=== PATIENT | female | born 2005 | race Hispanic/Latino ===

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

== ENCOUNTER 2023-05-26 01:25 | Emergency (ER) | payer MEDICAID ==
[~2023-05-26] VITALS: Ht 160 cm; Wt 49.9 kg
[~2023-05-26 01:25] MED LIST: PHEN-847 PO; SULF1TAB42 PO
[2023-05-26] MEDS ORDERED: AMOX/CLAV 875/125MG TAB PO ONE ×2 (02:27→02:30)
[2023-05-26 02:48] VITALS: BP 115/62; PULSE 74; RESP 18; O2SAT 98
[2023-05-26] MEDS ORDERED: AMOX-427 PO (02:49)
== END 2023-05-26 02:53 | disposition home or self-care (01) ==
LOC: EDH 01:25
DX: M25.531 Pain in right wrist (principal); E03.9 Hypothyroidism, unspecified; Z79.899 Other long term (current) drug therapy; W54.0XXA Bitten by dog, initial encounter; Y93.89 Activity, other specified; Y92.89 Other specified places as the place of occurrence of the external cause; Y99.8 Other external cause status

== ENCOUNTER 2023-10-10 10:24 | Emergency (ER) | payer BC, MEDICAID ==
[~2023-10-10] VITALS: Ht 160 cm; Wt 57.6 kg
[~2023-10-10 10:24] MED LIST changes: +AMOX-427 PO
[2023-10-10 10:25] VITALS: BP 127/53; PULSE 65; RESP 17; O2SAT 97
[2023-10-10 11:25] LABS: HCG,QUALITATIVE URINE NEGATIVE (NEGATIVE)
[2023-10-10 11:28] LABS: APPEARANCE,URINE CLOUDY (CLEAR); BILIRUBIN,URINE NEGATIVE (NEGATIVE); COLOR,URINE COLORLESS (YELLOW); GLUCOSE, URINE (UA) NEGATIVE (NEGATIVE); KETONES,URINE NEGATIVE (NEGATIVE); LEUKOCYTE ESTERASE ,URINE 500 Leu/uL (NEGATIVE); NITRATE,URINE NEGATIVE (NEGATIVE); OCCULT BLOOD,URINE LARGE (NEGATIVE); PROTEIN,URINE 30 mg/dL (NEGATIVE); UROBILINOGEN,URINE 0.2 mg/dL (0.2-1.0)
[2023-10-10 11:29] LABS: ADD UA MICROSCOPIC YES
[2023-10-10 11:37] LABS: BACTERIA,URINE FEW /HPF (None Seen); MUCUS,URINE RARE LPF (None Seen); RBC,URINE >100 /HPF (0-1); SQUAMOUS EPITHELIAL CELL,UR RARE /HPF (0-2); TRANSITIONAL EPI CELLS,URINE FEW /HPF (None Seen); WBC CLUMP FEW /HPF (0-1); WBC,URINE TNTC /HPF (0-1)
[2023-10-10] MEDS ORDERED: MACR100 PO (11:49)
[2023-10-10] MEDS: CEFTRIAXONE 1G VIAL IM ONE (12:00)
== END 2023-10-10 12:18 | disposition home or self-care (01) ==
LOC: EDH 10:24
DX: N30.01 Acute cystitis with hematuria (principal)
CPT/HCPCS: 99284; 87088; 81001; 81025; 96372; J0696